=== PATIENT | male | born 1935 | race Caucasian/White ===

== ENCOUNTER 2017-02-21 20:58 | Emergency (ER) | payer OTHER ==
[~2017-02-21] VITALS: Ht 177.8 cm; Wt 96.9 kg
[2017-02-21 21:52] LABS: HEMATOCRIT 48.4 % (38.0-50.0); MCH 29.4 PG (29.0-34.0); MCHC 33.3 G/DL (30.0-36.0); MCV 88.3 FL (86-99); MEAN PLAT.VOLUME 9.4 uM^3 (9.0-12.4); PLATELET COUNT 208 K/uL (156-360); RBC DIS.WIDTH-SD 42.5 % (39-53); RED BLOOD COUNT 5.48 M/uL (4.00-5.50); WHITE BLOOD COUNT 7.6 K/uL (4.1-10.2)
[2017-02-21 22:02] LABS: CHLORIDE 105 mEq/L (99-109); POTASSIUM 4.1 mEq/L (3.7-5.4); SODIUM 141 mEq/L (136-147)
[2017-02-21 22:03] LABS: MAGNESIUM 2.5 mg/dL (1.3-2.7)
[2017-02-21 22:04] LABS: GLUCOSE 96 mg/dL (70-99)
[2017-02-21 22:05] LABS: ANION GAP 8 MEQ/L (2-14)
[2017-02-21 22:08] LABS: GFR ESTIMATE (CALCULATED) > 59 mL/min/
[2017-02-21 22:09] LABS: UREA NITROGEN (BUN) 22 mg/dL (9-23)
[2017-02-21 22:14] LABS: TROP-I INTERPRETATION NEGATIVE; TROPONIN-I < 0.01 ng/mL (0.0-0.30)
[2017-02-22 01:04] LABS: TROP-I INTERPRETATION NEGATIVE; TROPONIN-I 0.02 ng/mL (0.0-0.30)
[2017-02-22 01:36] VITALS: BP 179/92
== END 2017-02-22 01:38 | disposition left against medical advice (07) ==
LOC: RME 20:58 → EME 20:58 → RME 02-22 01:38
PROVIDERS: Emergency Medicine; Physician Assistant
DX: R06.02 Shortness of breath (principal); F43.9 Reaction to severe stress, unspecified; F41.9 Anxiety disorder, unspecified; I10 Essential (primary) hypertension; I49.3 Ventricular premature depolarization; Z63.4 Disappearance and death of family member; Z87.891 Personal history of nicotine dependence
CPT/HCPCS: 71020; 71275; 80048; 83735; 83880; 84484; 85027; 93005; 99281; 99285; J7030